=== PATIENT | male | born 1985 | race Two or more races ===

== ENCOUNTER 2022-09-23 06:06 | Emergency (ER) | payer MEDICAID, OTHER ==
[~2022-09-23] VITALS: Ht 175.3 cm; Wt 100.0 kg
[2022-09-23 07:18] LABS: Basophils # (auto) 0 10 ^3/uL (0-0.2); Hemoglobin 11.1 g/dL (13.5-17.5); Lymphocytes # (auto) 0.9 10 ^3/uL (0.4-5.4); White Blood Cell 5.9 10^3/uL (4.4-10.8)
[2022-09-23] MEDS ORDERED: IOHEXOL 300 MG/ML 100ML BOTTLE IJ ONE (07:21)
[2022-09-23 07:23] LABS: Basophils % (auto) 0.6 % (0.0-2.0); Eosinophils # (auto) 0 10 ^3/uL (0-0.8); Eosinophils % (auto) 0.8 % (0.0-7.0); Hematocrit 37.6 % (41.0-53.0); Lymphocytes % (auto) 14.7 % (10.0-50.0); Mean Corpuscular Hemoglobin 21.2 pg (28.0-32.0); Mean Corpuscular Hgb Conc. 29.6 g/dL (32.0-36.0); Mean Corpuscular Volume 71.7 fL (80.0-100.0); Monocytes # (auto) 0.4 10 ^3/uL (0-1.3); Monocytes % (auto) 7.4 % (0.0-12.0); Neutrophils # (auto) 4.5 10 ^3/uL (1.6-8.6); Neutrophils % (auto) 76.5 % (37.0-80.0); Red Blood Cells 5.24 10^6/uL (4.5-5.90)
[2022-09-23 07:36] LABS: Albumin 4.1 g/dL (3.4-5.0); Calcium 8.3 mg/dL (8.5-10.1); Potassium 4.2 mmol/L (3.5-5.1)
[2022-09-23 07:39] LABS: BUN/Creatinine Ratio 14.7; Bilirubin, Total 0.2 mg/dL (0.2-1.0); Total Protein 7.2 g/dL (6.4-8.2)
[2022-09-23 07:44] LABS: Red Cell Distribution Width 20.8 % (11.8-14.3)
[2022-09-23 11:06] VITALS: BP 122/68
== END 2022-09-23 11:13 | disposition home or self-care (01) ==
LOC: ER 06:06 → EDBD 06:06 → ER 11:13
DX: M51.37 Other intervertebral disc degeneration, lumbosacral region (principal); R07.89 Other chest pain
CPT/HCPCS: 36415; 71260; 72125; 74177; 80053; 85025; 99285; Q9967